=== PATIENT | female | born 1955 ===

== ENCOUNTER → 2017-12-10 | Outpatient (CLI) | payer OTHER | END | disposition home or self-care (01) | LOC: PPH VACUNA 16:02 | DX: Z23 Encounter for immunization (principal) ==

== ENCOUNTER 2021-12-21 12:44 | Outpatient (CLI) | payer OTHER | END 2021-12-21 12:50 | disposition home or self-care (01) | LOC: RAD 12:44 | PROVIDERS: ATTEND Physical Medicine & Rehabilitation | DX: M25.561 Pain in right knee (principal) ==